=== PATIENT | female | born 1995 | race African-American/Black ===

== ENCOUNTER 2022-01-19 10:06 | Emergency (ER) | payer SELFPAY ==
[2022-01-19 11:04] LABS: Bilirubin Neg (Negative); Blood, Urine Negative (Negative); Clarity Clear (Clear); Glucose, Urine (Dipstick) Normal (Negative); Ketone, Urine Negative (Negative); Leukocyte 100 (Negative); Nitrite Negative (Negative); Protein, Urine (Dipstick) Negative (Neg-Trace); Specific Gravity, Urine 1.015 (1.002-1.036)
[2022-01-19 11:07] LABS: Pregnancy Test - Urine (BHCG) POSITIVE (Negative); Pregu Control Background? CLEAR/WHITE (CLR/WHITE); Pregu Control Bar Appear? YES (CONTROL BAR); Specific Gravity 1.015 (1.002-1.036)
[2022-01-19 11:28] LABS: #Basophils 0.1 10x3/uL (0.0-0.2); #Eosinphils 0.4 10x3/uL (0.0-0.5); #Monocytes 0.5 10x3/uL (0.0-1.1); #Neutrophils 4.7 10x3/uL (1.5-8.4); %Basophils 0.9 % (0.0-2.0); %Eosinophils 4.5 % (0.0-6.0); %Lymphocytes 27.9 % (18.0-47.0); %Monocytes 6.8 % (0.0-10.0); %Neutrophils 59.5 % (40.0-75.0); Hemoglobin 10.7 g/dL (12.0-15.5); Mean Corpuscular HGB CONC 31.2 g/dL (32.0-36.0); Mean Corpuscular Hemoglobin 23.7 pg (27.0-33.0); Mean Corpuscular Volume 75.9 fl (81.6-98.3); Platelet Count 352 10x3/uL (150-450); RBC Distribution Width 13.5 % (11.5-14.5); Red Blood Cell (RBC) Count 4.52 10x6/uL (3.90-5.03); White Blood Cell (WBC) Count 7.9 10x3/uL (3.5-10.5)
[2022-01-19 11:32] LABS: Bacteria/HPF Rare-Few HPF (None Seen); RBC/HPF 0-3 HPF (0-3); Squamous Epithelial 0-3 HPF (0-3)
[2022-01-19 11:44] LABS: ALT (SGPT) 8 U/L (8-55); AST (SGOT) 5 U/L (5-34); Albumin 3.8 g/dL (3.5-5.0); Alkaline Phosphatase 49 U/L (40-110); Anion Gap 9 mmol/L (10-20); BUN (Urea Nitrogen) 10 mg/dL (7.0-18.7); Bilirubin, Total 0.3 mg/dL (0.2-1.2); Calc. Creatinine Clearance 0 mL/min (70-130); Calcium 9.4 mg/dL (7.8-10.44); Carbon Dioxide 26 mmol/L (22-29); Chloride 103 mmol/L (98-107); Estimated GFR 86; Globulin 3.6 g/dL (2.4-3.5); Glucose 150 mg/dL (70-105); Potassium 3.4 mmol/L (3.5-5.1); Protein, Total 7.4 g/dL (6.0-8.3); Sodium 135 mmol/L (136-145)
== END 2022-01-19 14:28 | disposition home or self-care (01) ==
LOC: CSHERS 10:06
DX: O99.891 Other specified diseases and conditions complicating pregnancy (principal); R51.9 Headache, unspecified; O23.41 Unspecified infection of urinary tract in pregnancy, first trimester; N39.0 Urinary tract infection, site not specified; Z3A.01 Less than 8 weeks gestation of pregnancy
CPT/HCPCS: 36415; 76856; 80053; 81003; 81015; 81025; 84702; 85025; 86900; 86901

== ENCOUNTER 2022-07-18 13:55 | Outpatient (CLI) | payer OTHER | END 2022-07-18 13:56 | disposition home or self-care (01) | LOC: CSHULT 13:55 | PROVIDERS: ATTEND Nurse Practitioner Women's Health | DX: Z34.83 Encounter for supervision of other normal pregnancy, third trimester (principal); Z3A.31 31 weeks gestation of pregnancy | CPT/HCPCS: 76805 ==

== ENCOUNTER 2022-09-10 18:00 | Inpatient (IN) | payer OTHER ==
[2022-09-11 00:49] VITALS: BMI 42.7
[2022-09-11] MEDS ORDERED: Ondansetron PF 4 MG/2 ML Vial IVP PRN ×2 (01:40→12:23)
[2022-09-11] MEDS ORDERED: Acetaminophen 500 MG TAB PO PRN (01:40)
[2022-09-11] MEDS ORDERED: Diphenoxylate HCl/Atropine Tablet PO PRN (01:40)
[2022-09-11] MEDS ORDERED: Carboprost 250 MCG/ML AMP IM PRN (01:40)
[2022-09-11] MEDS ORDERED: HYDROcodone/Acetaminophen 5/325 mg Tablet PO PRN ×3 (01:40→12:23)
[2022-09-11] MEDS ORDERED: hydrALAZINE 20 MG/ML VIAL SLOW IVP PRN ×2 (01:40→12:23)
[2022-09-11] MEDS ORDERED: Lidocaine 1% (PF) 30 ML VIAL SC PRN (01:40)
[2022-09-11] MEDS ORDERED: Misoprostol 200 MCG TAB PR PRN (01:40)
[2022-09-11] MEDS ORDERED: Promethazine HCl 25 MG/ML VIAL IM PRN ×2 (01:40→12:23)
[2022-09-11] MEDS ORDERED: Ibuprofen 800 MG TAB PO PRN (01:40)
[2022-09-11] MEDS ORDERED: NS w/ Oxytocin 30 units 500 ML IV SCH ×2 (01:40)
[2022-09-11] MEDS ORDERED: Methylergonovine 0.2 MG/ML VIAL IM PRN (01:40)
[2022-09-11] MEDS ORDERED: Butorphanol Tartrate 1 MG/ML VIAL SLOW IVP PRN (01:40)
[2022-09-11] MEDS ORDERED: Lactated Ringer's 1,000 ML IV SCH (01:40)
[2022-09-11] MEDS ORDERED: Tranexamic Acid 1,000 MG in Sodium Chloride 0.9% 250 ML 250 ML IVPB PRN (01:40)
[2022-09-11 02:21] LABS: Mean Corpuscular HGB CONC 30.1 g/dL (32.0-36.0); Mean Corpuscular Hemoglobin 23.3 pg (27.0-33.0); Mean Corpuscular Volume 77.3 fl (81.6-98.3); Mean Platelet Volume 9.8 fl (7.4-10.4); Platelet Count 363 10x3/uL (150-450); RBC Distribution Width 15.2 % (11.5-14.5); Red Blood Cell (RBC) Count 3.87 10x6/uL (3.90-5.03); White Blood Cell (WBC) Count 6.2 10x3/uL (3.5-10.5)
[2022-09-11] MEDS ORDERED: Penicillin G Potassium 5 MILL.UNITS VIAL ONE (02:40)
[2022-09-11 02:52] LABS: HBSAg Index 0.11 S/CO (0-0.99); Hep B Surf Ag Non-Reactive S/CO (NonReactive)
[2022-09-11 02:54] LABS: Syphilis Antibody Nonreactive (Nonreactive); Syphilis Antibody Index 0.05 S/CO (<1.00 Non-Reactive)
[2022-09-11] MEDS: CEFAZOLIN 2 GM in Sodium Chloride 0.9% 100 ML IVPB SCH ×2 (03:05→09:02)
[2022-09-11 04:13] LABS: SARS-CoV-2 NAA Rapid Test Not Detected (NotDetected)
[2022-09-11] MEDS: Misoprostol 100 MCG TAB PO SCH (04:59)
[2022-09-11] MEDS ORDERED: Fentanyl 2 mcg/Bup 0.1% Cadd 100 ML ONE (06:56)
[2022-09-11] MEDS ORDERED: Bupivacaine/Epinephrine 0.25% 30 ML VIAL ONE (08:00)
[2022-09-11] MEDS ORDERED: CEFAZOLIN 2 GM VIAL ONE (09:01)
[2022-09-11] MEDS ORDERED: Lanolin Ointment 7 GM TUBE TOP PRN (12:23)
[2022-09-11] MEDS ORDERED: Milk Of Magnesia 30 ML UDCUP PO PRN (12:23)
[2022-09-11] MEDS ORDERED: Bisacodyl 10 MG SUPP PR PRN (12:23)
[2022-09-11] MEDS ORDERED: Benzocaine-Menthol 82.5 ML CAN TOP PRN (12:23)
[2022-09-11] MEDS ORDERED: Boostrix 0.5 ML (Tdap) VIAL (>/=7 yrs of age) IM ONE (12:23)
[2022-09-11] MEDS ORDERED: Preparation H Ointment 28 GM TUBE PR PRN (12:23)
[2022-09-11] MEDS ORDERED: diphenhydrAMINE 25 MG CAP PO PRN (12:23)
[2022-09-11] MEDS: Ibuprofen 800 MG TAB PO SCH ×2 (14:48→21:35)
[2022-09-11] MEDS: Ferrous Sulfate 325 MG TAB PO SCH (17:30)
[2022-09-11] MEDS: Docusate 100 MG CAP PO SCH (21:35)
[2022-09-12] MEDS: Ibuprofen 800 MG TAB PO SCH ×2 (05:52→14:42)
[2022-09-12] MEDS: Ferrous Sulfate 325 MG TAB PO SCH (08:34)
[2022-09-12] MEDS: Docusate 100 MG CAP PO SCH (08:35)
[2022-09-12] MEDS: Misoprostol 100 MCG TAB PO SCH (08:40)
[2022-09-12] MEDS ORDERED: Prenatal Vitamin 1 TAB PO SCH (09:00)
[2022-09-12 09:32] VITALS: BP 130/74; TEMP 98
== END 2022-09-12 17:20 | disposition home or self-care (01) | DRG 807 ==
LOC: UNDOADMIN 21:02 → CSHLD 21:02 → CSHPP 09-11 12:50
PROVIDERS: ADMIT Family Medicine; ATTEND Family Medicine
PROC: 10E0XZZ Delivery of Products of Conception, External Approach (ICD-10-PCS; principal; 2022-09-11)
PROC: 10907ZC Drainage of Amniotic Fluid, Therapeutic from Products of Conception, Via Natural or Artificial Opening (ICD-10-PCS; 2022-09-11)
PROC: 3E033VJ Introduction of Other Hormone into Peripheral Vein, Percutaneous Approach (ICD-10-PCS; 2022-09-11)
DX: O24.420 Gestational diabetes mellitus in childbirth, diet controlled (principal); Z37.0 Single live birth; Z20.822 Contact with and (suspected) exposure to COVID-19; O99.824 Streptococcus B carrier state complicating childbirth; O99.214 Obesity complicating childbirth; E66.9 Obesity, unspecified; Z79.899 Other long term (current) drug therapy; Z88.0 Allergy status to penicillin; Z3A.39 39 weeks gestation of pregnancy; O66.0 Obstructed labor due to shoulder dystocia; Z88.1 Allergy status to other antibiotic agents
CPT/HCPCS: 36415; 36416; 51702; 85027; 86780; 86850; 86900; 86901; 87340; J2590; J3490; J7120; U0002